=== PATIENT | male | born 1980 | race Caucasian/White ===

== ENCOUNTER 2021-01-18 09:09 | Outpatient (CLI) | payer OTHER | END 2021-01-18 09:10 | disposition home or self-care (01) | LOC: CSHWCC 09:09 | PROVIDERS: ATTEND Nurse Practitioner Family | DX: T81.89XD Other complications of procedures, not elsewhere classified, subsequent encounter (principal); K94.09 Other complications of colostomy; K57.30 Diverticulosis of large intestine without perforation or abscess without bleeding; F32.9 Major depressive disorder, single episode, unspecified; E03.9 Hypothyroidism, unspecified; E66.01 Morbid (severe) obesity due to excess calories ==

== ENCOUNTER 2021-01-22 08:40 | Outpatient (CLI) | payer OTHER | END 2021-01-22 08:41 | disposition home or self-care (01) | LOC: CSHWCC 08:40 | PROVIDERS: ATTEND Nurse Practitioner Family | DX: T81.89XD Other complications of procedures, not elsewhere classified, subsequent encounter (principal); K94.09 Other complications of colostomy; K57.20 Diverticulitis of large intestine with perforation and abscess without bleeding; E03.9 Hypothyroidism, unspecified; F32.9 Major depressive disorder, single episode, unspecified; E66.01 Morbid (severe) obesity due to excess calories | CPT/HCPCS: 97605 ==

== ENCOUNTER 2021-01-26 07:53 | Outpatient (CLI) | payer OTHER | END 2021-01-26 07:54 | disposition home or self-care (01) | LOC: CSHWCC 07:53 | PROVIDERS: ATTEND Nurse Practitioner Family | DX: T81.89XD Other complications of procedures, not elsewhere classified, subsequent encounter (principal); E03.9 Hypothyroidism, unspecified; E66.01 Morbid (severe) obesity due to excess calories; F32.9 Major depressive disorder, single episode, unspecified; K57.20 Diverticulitis of large intestine with perforation and abscess without bleeding; K94.09 Other complications of colostomy | CPT/HCPCS: 97605 ==

== ENCOUNTER 2021-01-29 09:41 | Outpatient (CLI) | payer OTHER | END 2021-01-29 09:42 | disposition home or self-care (01) | LOC: CSHWCC 09:41 | PROVIDERS: ATTEND Nurse Practitioner Family | DX: T81.89XD Other complications of procedures, not elsewhere classified, subsequent encounter (principal); K94.09 Other complications of colostomy; K57.20 Diverticulitis of large intestine with perforation and abscess without bleeding; E03.9 Hypothyroidism, unspecified; E66.01 Morbid (severe) obesity due to excess calories; F32.9 Major depressive disorder, single episode, unspecified; Z93.3 Colostomy status | CPT/HCPCS: 97605 ==

== ENCOUNTER 2021-02-01 08:39 | Outpatient (CLI) | payer OTHER | END 2021-02-01 08:40 | disposition home or self-care (01) | LOC: CSHWCC 08:39 | PROVIDERS: ATTEND Nurse Practitioner Family | DX: T81.89XD Other complications of procedures, not elsewhere classified, subsequent encounter (principal); K94.09 Other complications of colostomy; E03.9 Hypothyroidism, unspecified; E66.01 Morbid (severe) obesity due to excess calories; F32.9 Major depressive disorder, single episode, unspecified; K57.20 Diverticulitis of large intestine with perforation and abscess without bleeding; Z93.3 Colostomy status | CPT/HCPCS: 97605; 99213; G0463 ==

== ENCOUNTER 2021-02-05 11:53 | Outpatient (CLI) | payer OTHER | END 2021-02-05 11:54 | disposition home or self-care (01) | LOC: CSHWCC 11:53 | PROVIDERS: ATTEND Nurse Practitioner Family | DX: T81.89XD Other complications of procedures, not elsewhere classified, subsequent encounter (principal); K94.09 Other complications of colostomy; K57.20 Diverticulitis of large intestine with perforation and abscess without bleeding; E03.9 Hypothyroidism, unspecified; E66.01 Morbid (severe) obesity due to excess calories; F32.9 Major depressive disorder, single episode, unspecified; Z93.3 Colostomy status | CPT/HCPCS: 97607; 99213; G0463 ==

== ENCOUNTER 2021-02-09 07:59 | Outpatient (CLI) | payer OTHER | END 2021-02-09 08:00 | disposition home or self-care (01) | LOC: CSHWCC 07:59 | PROVIDERS: ATTEND Nurse Practitioner Family | DX: T81.89XD Other complications of procedures, not elsewhere classified, subsequent encounter (principal); K94.09 Other complications of colostomy; K57.20 Diverticulitis of large intestine with perforation and abscess without bleeding; E03.9 Hypothyroidism, unspecified; F32.9 Major depressive disorder, single episode, unspecified; E66.01 Morbid (severe) obesity due to excess calories ==

== ENCOUNTER 2021-02-13 10:59 | Outpatient (CLI) | payer OTHER | END 2021-02-13 11:00 | disposition home or self-care (01) | LOC: CSHWCC 10:59 | PROVIDERS: ATTEND Nurse Practitioner Family | DX: T81.89XD Other complications of procedures, not elsewhere classified, subsequent encounter (principal); K94.09 Other complications of colostomy; K57.20 Diverticulitis of large intestine with perforation and abscess without bleeding; E03.9 Hypothyroidism, unspecified; E66.01 Morbid (severe) obesity due to excess calories; F32.9 Major depressive disorder, single episode, unspecified; Z93.3 Colostomy status | CPT/HCPCS: 97605 ==

== ENCOUNTER 2021-02-16 09:11 | Outpatient (CLI) | payer OTHER | END 2021-02-16 09:12 | disposition home or self-care (01) | LOC: CSHWCC 09:11 | PROVIDERS: ATTEND Nurse Practitioner Family | DX: T81.89XD Other complications of procedures, not elsewhere classified, subsequent encounter (principal); K94.09 Other complications of colostomy; E03.9 Hypothyroidism, unspecified; F32.9 Major depressive disorder, single episode, unspecified; K57.20 Diverticulitis of large intestine with perforation and abscess without bleeding; E66.01 Morbid (severe) obesity due to excess calories ==

== ENCOUNTER 2021-02-19 15:04 | Outpatient (CLI) | payer OTHER | END 2021-02-19 15:05 | disposition home or self-care (01) | LOC: CSHWCC 15:04 | PROVIDERS: ATTEND Nurse Practitioner Family | DX: T81.89XD Other complications of procedures, not elsewhere classified, subsequent encounter (principal); K94.09 Other complications of colostomy; K57.20 Diverticulitis of large intestine with perforation and abscess without bleeding; E03.9 Hypothyroidism, unspecified; F32.9 Major depressive disorder, single episode, unspecified; E66.01 Morbid (severe) obesity due to excess calories | CPT/HCPCS: 97605 ==

== ENCOUNTER 2021-02-23 08:58 | Outpatient (CLI) | payer OTHER | END 2021-02-23 08:59 | disposition home or self-care (01) | LOC: CSHWCC 08:58 | PROVIDERS: ATTEND Nurse Practitioner Family | DX: T81.89XD Other complications of procedures, not elsewhere classified, subsequent encounter (principal); K94.09 Other complications of colostomy; K57.20 Diverticulitis of large intestine with perforation and abscess without bleeding; F32.9 Major depressive disorder, single episode, unspecified; E03.9 Hypothyroidism, unspecified; E66.01 Morbid (severe) obesity due to excess calories | CPT/HCPCS: 99212; G0463 ==

== ENCOUNTER 2021-02-26 08:43 | Outpatient (CLI) | payer OTHER | END 2021-02-26 08:44 | disposition home or self-care (01) | LOC: CSHWCC 08:43 | PROVIDERS: ATTEND Nurse Practitioner Family | DX: T81.89XD Other complications of procedures, not elsewhere classified, subsequent encounter (principal); K94.09 Other complications of colostomy; K57.20 Diverticulitis of large intestine with perforation and abscess without bleeding; E03.9 Hypothyroidism, unspecified; E66.01 Morbid (severe) obesity due to excess calories; F32.9 Major depressive disorder, single episode, unspecified; Z93.3 Colostomy status | CPT/HCPCS: 97607; 99213; G0463 ==